=== PATIENT | female | born 1945 | race Caucasian/White ===

== ENCOUNTER 2017-06-03 10:30 | Day surgery (SDC) | payer MEDICARE ==
[2017-06-03 14:07] VITALS: BP 125/53
== END 2017-06-03 14:02 | disposition home or self-care (01) ==
LOC: SDC 10:30
PROVIDERS: Ophthalmology
PROC: 08RJ3JZ Replacement of Right Lens with Synthetic Substitute, Percutaneous Approach (ICD-10-PCS; principal; 2017-06-03 14:00)
DX: H26.9 Unspecified cataract (principal); E11.9 Type 2 diabetes mellitus without complications
CPT/HCPCS: V2632

== ENCOUNTER 2017-08-31 01:59 | Emergency (ER) | payer MEDICARE ==
[~2017-08-31] VITALS: Ht 160 cm; Wt 96.2 kg
--- OUTSIDE RECORDS SUMMARY | 2017-08-31 02:42 | External Medical Summary Rpt | CCD ---
Demographics Preferred Language Greek Marital Status Unknown Christianity Affiliation Unknown Race Unknown Ethnic Group Unknown Author Author , NAEEM HARTLEY Address Unknown Phone Immunization Unable to retrieve immunization data due to connection failure with Immunization Registry. Please try again later.
--- OUTSIDE RECORDS SUMMARY | 2017-08-31 02:42 | External Medical Summary Rpt | CCD ---
Author Author PHAM Address Unknown Phone [email or web address] Purpose Continuity of Care Document - through 2016
--- OUTSIDE RECORDS SUMMARY | 2017-08-31 02:42 | External Medical Summary Rpt ---
Author Author NAEEM Myrna, [employer] Organization [employer] Address Unknown Phone Unavailable Results Glucose [Mass/volume] in Capillary blood by Glucometer Observa Value Referen Units Interpr Notes Date tion ce etation Range Glucose 70 - 110 mg/dl No No Jun 8 [Mass/vol informati informati 2017 9:56 ume] in on in on in AM Capillary source source blood by data data Glucomete r Glucose [Mass/volume] in Capillary blood by Glucometer Observa Value Referen Units Interpr Notes Date ti ce etation Range Glucose 70 - 110 mg/dl High No Jun 03 [Mass/vol informati 2016 ume] in on in 11:54 AM Capillary source blood by data Glucomete r Cobalamin (Vitamin B12) [Mass/volume] in Serum Observa Value Referen Units Interpr Notes Date ti ce etation Range Cobalamin 211 - 946 pg/mL No Performed Apr 30 (Vitamin informati at: CB 2016 1:41 B12) on in - [facility] PM [Mass/vol source ume] in data [address] [address] Serum 0 [place], [place] [id number] Ground Operations Supervisor: Ruddy Kyle PhD, Phone: [phone] Iron and TIBC Observa Value Referen Units Interpr Notes Date ti ce etation Range Iron 250 - 450 ug/dL No No Apr 30 binding informati informati 2016 1:41 capacity on in on in PM [Mass/vol source source ume] in data data Serum or Plasma Iron 118 - 369 ug/dL High No Apr 30 binding informati 2017 1:41 capacity. on in PM unsaturat source ed data [Mass/vol ume] in Serum or Plasma Iron 27 - 139 ug/dL Low No Apr 30 [Mass/vol informati 2017 1:41 ume] in on in PM Serum or source Plasma data Iron 15 - 55 % Low Performed Apr 30 saturatio at: CB 2016 1:41 n [Mass] - [facility] PM in Serum or Plasma [id number] [place], [place] [id number] Ground Operations Supervisor: Ruddy Kyle PhD, Phone: [phone] Folate [Mass/volume] in Serum or Plasma Observa Value Referen Units Interpr Notes Date tion ce etation Range Folate >3.0 ng/mL No A serum Apr 30 [Mass/vol informati folate 2017 1:41 ume] in on in concentra PM Serum or source tion of Plasma data less than 3.1 ng/mL isconside red to represent clinical deficienc y.Perform ed at: CB - [facility] [id number] [place], [place] [id number] Ground Operations Supervisor: Ruddy Kyle PhD, Phone: [phone] Comprehensive metabolic 2000 panel in Serum or Plasma Observa Value Referen Units Interpr Notes Date tion ce etation Range Albumin/G 1.1 - 1.8 No Low No Apr 30 lobulin informati informati 2017 1:41 [Mass on in on in PM ratio] in source source Serum or data data Plasma Albumin 3.4 - 5.0 gm/dL Low No Apr 30 [Mass/vol informati 2017 1:41 ume] in on in PM Serum or source Plasma data Alkaline 46 - 116 U/L Normal No Apr 30 phosphata informati 2017 1:41 se on in PM [Enzymati source c data activity/ volume] in Serum or Plasma Bilirubin 0.2 - 1.0 mg/dL Normal No Apr 30 .total informati 2016 1:41 [Mass/vol on in PM ume] in source Serum or data Plasma Urea 7 - 18 mg/dL High No Apr 30 nitrogen informati 2017 1:41 [Mass/vol on in PM ume] in source Serum or data Plasma Calcium 8.5 - mg/dL Normal No Apr 30 [Mass/vol 10.1 informati 2017 1:41 ume] in on in PM Serum or source Plasma data Chloride 98 - 107 mmoL/L Normal No Apr 30 [Moles/vo informati 2017 1:41 lume] in on in PM Serum or source Plasma data Carbon 21.0 - mmoL/L Normal No Apr 30 dioxide, 32.0 informati 2017 1:41 total on in PM [Moles/vo source lume] in data Serum or Plasma Creatinin 0.55 - mg/dL High No Apr 30 e 1.02 inform2016 1:41 [Mass/vol on in PM ume] in source Serum or data Plasma Estimated 59- ML/MIN Low REFERENCE Apr 30 RANGE: 2016 1:41 glomerula >60 PM r ML/MIN/1. filtratio 73 SQUARE n rate METERSIf (GF this patient is -A merican, then multiply theresult by 1.210. Globulin 1.3 - 3.2 gm/dL High No Apr 30 [Mass/vol informati 2016 1:41 ume] in on in PM Serum source data Glucose 74 - 106 mg/dL Normal No Apr 30 [Mass/vol informati 2016 1:41 ume] in on in PM Serum or source Plasma data Potassium 3.5 - 5.1 mmoL/L Normal No Apr 302016 1:41 [Moles/vo on in PM lume] in source Serum or data Plasma Sodium 136 - 145 mmoL/L Normal No Apr 30 [Moles/vo informati 2016 1:41 lume] in on in PM Serum or source Plasma data Aspartate 15 - 37 U/L Low No Apr 30 informati 2016 1:41 aminotran on in PM sferase source [Enzymati data c activity/ volume] in Serum or Plasma Alanine 12 - 78 U/L Normal No Apr 30 aminotran 2016 1:41 sferase on in PM [Enzymati source c data activity/ volume] in Serum or Plasma Protein 6.4 - 8.2 gm/dL Normal No Apr 30 [Mass/vol informati 2016 1:41 ume] in on in PM Serum or source Plasma data CRP Observa Value Referen Units Interpr Notes Date tion ce etation Range CRP 0.0 - 0.9 MG/DL High No Apr 30 informati 2016 1:41 on in PM source data Ferritin [Mass/volume] in Serum or Plasma Observa Value Referen Units Interpr Notes Date tion ce etation Range Ferritin 8 - 388 ng/mL Normal No Apr 30 [Mass/vol informati 2016 1:41 ume] in on in PM Serum or source Plasma data CBC W Auto Differential panel in Blood Observa Value Referen Units Interpr Notes Date tion ce etation Range Basophils 0 - 0.2 K/MM3 Normal No Apr 30 informati 2016 1:41 [#/volume on in PM ] in source Blood by data Automated count Basophils 0.1 - 2.0 % Normal No Fran 21 /100 informati 2017 1:41 leukocyte on in PM s in source Blood by data Automated count Eosinophi 0.0 - 0.4 K/mm3 High No Apr 21 ls informati 2016 1:41 [#/volume on in PM ] in source Blood by data Automated count Eosinophi 0.1 - % Normal No Apr 30 ls/100 12.0 informati 2016 1:41 leukocyte on in PM s in source Blood by data Automated count Granulocy 1.8 - 7.8 K/mm3 High No Apr 21 marcello informati 2016 1:41 [#/volume on in PM ] in source Blood by data Automated count Granulocy 37.0 - % Normal No Apr 30 marcello/100 80.0 informati 2016 1:41 leukocyte on in PM s in source Blood by data Automated count Hematocri 37.0 - % Low No Apr 30 t [Volume 47.0 informati 2016 1:41 on in PM Fraction] source of Blood data Hemoglobi 12.2 - g/dL Low No Apr 30 n 16.2 informati 2016 1:41 [Mass/vol on in PM ume] in source Blood data Lymphocyt 0.7 - 4.5 K/mm3 Normal No Apr 30 es informati 2017 1:41 [#/volume on in PM ] in source Unspecifi data ed specimen by Automated count Lymphocyt 10 - 50.0 % Normal No Apr 30 es informati 2017 1:41 [#/volume on in PM ] in source Unspecifi data ed specimen by Automated count Erythrocy 27 - 31.2 pg Low No Apr 30 te mean informati 2017 1:41 corpuscul on in PM ar source hemoglobi data n [Entitic mass] Erythrocy 31.8 - g/dl Low No Apr 30 te mean 35.4 informati 2017 1:41 corpuscul on in PM ar source hemoglobi data n concentra tion [Mass/vol ume] by Automated count Erythrocy 82.2 - fl Low No Apr 30 te mean 97.8 informati 2016 1:41 corpuscul on in PM ar volume source [Entitic data volume] by Automated count Monocytes 0.1 - 1.0 K/mm3 Normal No Apr 21 informati 2016 1:41 [#/volume on in PM ] in source Blood by data Automated count Monocytes 1.7 - 9.3 % Normal No Apr 30 /100 informati 2017 1:41 leukocyte on in PM s in source Blood by data Automated count Platelet 7.4 - fl Low No Apr 30 mean 10.4 informati 2017 1:41 volume on in PM [Entitic source volume] data in Blood by Automated count Platelets 142 - 424 K/mm3 Normal No Apr 30 informati 2017 1:41 [#/volume on in PM ] in source Blood data Erythrocy 4.2 - 5.4 M/mm3 Normal No Apr 30 marcello informati 2016 1:41 [#/volume on in PM ] in source Amniotic data fluid Erythrocy 11.5 - % Normal Apr 30 te 17.5 informati 2017 1:41 distribut on in PM ion width source [Entitic data volume] by Automated count Leukocyte 4.8 - K/MM3 High No Apr 30 s 10.8 informati 2016 1:41 [#/volume on in PM ] in source Blood data
--- OUTSIDE RECORDS SUMMARY | 2017-08-31 02:42 | External Medical Summary Rpt ---
[...] [facility] PM [Mass/vol source ume] in data [address] [address] Serum [address] [place], [place] [id number] Paraffiner: Ruddy Kyle PhD, Phone: [phone] Iron and TIBC Observa Value Referen [...] - [facility] PM in Serum or Plasma [id number] [place], [place] [id number] Paraffiner: Ruddy Kyle PhD, Phone: [phone] Folate [Mass/volume] in Serum or Plasma Observa Value Referen Units Interpr Notes Date tion ce etation Range Folate >3.0 ng/mL No A serum Apr 30 [Mass/vol informati folate 2017 1:41 ume] in on in concentra PM Serum or source tion of Plasma data less than 3.1 ng/mL isconside red to represent clinical deficienc y.Perform ed at: CB - [facility] [id number] [place], [place] [id number] Paraffiner: Ruddy Kyle PhD, Phone: [phone] Comprehensive metabolic 2000 panel in Serum [...]
--- OUTSIDE RECORDS SUMMARY | 2017-08-31 02:42 | External Medical Summary Rpt | CCD ---
Author Author , NAEEM HARTLEY Address Unknown Phone [email or web address] Purpose Continuity of Care Document - 04-09-2017 through 2016 Results Labs Lab Lab Date Result Refere Interp Status Commen Order Detail nces retati t Range on CBC (hemogram) Bld Auto (04-10-2017 04:23) Platele 343 150-450 complet t # Bld 017 10*3/mm ed Auto 04:23 3 PMV Bld 9.1 fL 6.0-12. complet Auto 017 0 ed 04:23 RDW RBC 49.4 fl 37.0-54 complet Auto 017 .0 ed 04:23 RDW RBC 17.5 % 11.3-14 complet 017 .5 ed Auto-Rt 04:23 o MCHC 2 30.0 32.0-36 complet RBC 017 g/dL .0 ed Auto-mC 04:23 nc MCH RBC 22.9 pg 27.0-31 complet Qn 017 .0 ed Auto 04:23 MCV RBC 76.3 fL 80.0-99 complet Auto 017 .0 ed 04:23 Hct VFr 31.3 % 34.5-44 complet Bld 017 .0 ed Auto 04:23 Hgb 04-10-2 9.4 11.5-15 complet Bld-mCn 017 g/dL .5 ed c 04:23 RBC # 06-01-2 4.10 3.89-5. complet Bld 017 10*6/mm 14 ed Auto 04:23 3 WBC 04-10-2 13.12 3.50-10 complet nRBC 017 10*3/mm .80 ed cor # 04:23 3 Bld Bas Metab 2000 Pnl SerPl (04-10-2017 04:23) Comment: National Kid[employer] Guidelines Comment: Comment: Stage Description GFR Comment: 1 Normal or High 90+ Comment: 2 Mild decrease 60-89 Comment: 3 Moderate decrease 30-59 Comment: 4 Severe decrease 15-29 Comment: 5 Kidney failure <15 Anion 3.0 3.0-11. complet Gap3 017 mmol/L 0 ed SerPl-s 04:23 Cnc BUN/Cre 16.7 7.0-25. complet at 017 0 ed SerPl 04:23 GFR/BSA 44 >60 complet .pred 017 mL/min/ ed SerPl 04:23 1.73 MDRD-Ar VRat Calcium 9.1 8.7-10. complet 017 mg/dL 4 ed XXX-sCn 04:23 c CO2 28.0 20.0-31 complet SerPl-s 017 mmol/L .0 ed Cnc 04:23 Chlorid 103 99-109 complet e 017 mmol/L ed SerPl-s 04:23 Cnc Potassi 4.1 3.5-5.5 complet um 017 mmol/L ed Bld-sCn 04:23 c Sodium 134 132-146 complet Bld-sCn 017 mmol/L ed c 04:23 Creat 1.20 0.60-1. complet Bld-mCn 017 mg/dL 30 ed c 04:23 BUN 20 9-23 complet Bld-mCn 017 mg/dL ed c 04:23 Glucose 106 70-100 complet 017 mg/dL ed Bld-mCn 04:23 c Bas Metab 1999 Pnl SerPl (04-09-2017 12:51) Comment: Meter: [id number] Composite Science Teacher: [id number] Vangie Shane Glucose 154 70-130 complet BldC 017 mg/dL ed Glucomt 12:51 r-mCnc Bas Metab 1999 Pnl SerPl (04-09-2017 11:26) Comment: Meter: [id number] Composite Science Teacher: [id number] Nirmala Gordon Glucose 152 70-130 complet BldC 017 mg/dL ed Glucomt 11:26 r-mCnc Bas Metab 1999 Pnl SerPl (04-09-2017 10:15) Comment: Meter: [id number] Composite Science Teacher: [id number] Nirmala Gordon Glucose 56 70-130 complet BldC 017 mg/dL ed Glucomt 10:15 r-mCnc ACT Bld (04-09-2017 09:26) ACT Bld 234 82-152 complet 017 Seconds ed 09:26 Comment: Serial Number: [id number] Composite Science Teacher: [id number] Bas Metab 2000 Pnl SerPl (04-09-2017 07:08) Comment: Meter: [id number] Composite Science Teacher: [id number] Yolanda Ryder Glucose 80 70-130 complet BldC 017 mg/dL ed Glucomt 07:08 r-[facility] Lipid pnl with direct LDL SerPl (04-09-2017 07:04) Comment: Cholesterol Reference Ranges: Comment: Desirable < 200 mg/dL Comment: Borderline 200-239 mg/dL Comment: High Risk > 239 mg/dL Comment: Comment: Triglyceride Reference Ranges: Comment: Normal < 150 mg/dL Comment: Borderline 150-199 mg/dL Comment: High 200-499 mg/dL Comment: Very High > 499 mg/dL Comment: Comment: HDL Reference Ranges: Comment: Low < 40 mg/dL Comment: High > 59 mg/dL Comment: Comment: LDL Reference Ranges: Comment: Optimal < 100 mg/dL Comment: Near Optimal 100-129 mg/dL Comment: Borderline 130-159 mg/dL Comment: High 160-189 mg/dL Comment: Very High > 189 mg/dL Articho 80 0-130 complet ke IgE 017 mg/dL ed Qn 07:04 HDLc 57 40-60 complet SerPl-m 017 mg/dL ed Cnc 07:04 Trigl 114 0-150 complet SerPl-m 017 mg/dL ed Cnc 07:04 Cholest 156 0-200 complet 017 mg/dL ed SerPl-m 07:04 Cnc Hgb A1c Bld (04-09-2017 07:04) Comment: The [place] [employer] recommends maintenance of Hemoglobin A1C at 7.0% or lower. Goals for Hemoglobin A1C reduction may need to be modified if hypoglycemia is a problem. Hgb A1c 8.00 % 4.80-5. complet MFr 017 60 ed Bld 07:04 Comp Metab 1998 Pnl SerPl (04-09-2017 07:04) Comment: National Kidney Foundation Guidelines Comment: Comment: Stage Description GFR Comment: 1 Normal or High 90+ Comment: 2 Mild decrease 60-89 Comment: 3 Moderate decrease 30-59 Comment: 4 Severe decrease 15-29 Comment: 5 Kidney failure <15 Anion 04-09- 10.0 3.0-11. complet Gap3 017 mmol/L 0 ed SerPl-s 07:04 Cnc BUN/Cre 22.0 7.0-25. complet at 017 0 ed SerPl 07:04 Albumin 1.4 1.5-2.5 complet /Glob 017 g/dL ed SerPl 07:04 Globuli 3.1 complet n Ur 017 gm/dL ed Elph-mC 07:04 nc GFR/BSA 55 >60 complet .pred 017 mL/min/ ed SerPl 07:04 1.73 MDRD-Ar VRat Bilirub 0.4 0.3-1.2 complet 017 mg/dL ed SerPl-m 07:04 Cnc ALP 98 U/L 25-100 complet SerPl-c 017 ed Cnc 07:04 AST 14 U/L 0-33 complet SerPl-c 017 ed Cnc 07:04 ALT 04-09- 10 U/L 7-40 complet SerPl w 017 ed 07:04 P-5'-P- cCnc Albumin 4.40 3.20-4. complet 017 g/dL 80 ed SerPl-m 07:04 Cnc Prot 7.5 5.7-8.2 complet SerPl-m 017 g/dL ed Cnc 07:04 Calcium 10.0 8.7-10. complet 017 mg/dL 4 ed XXX-sCn 07:04 c CO2 28.0 20.0-31 complet SerPl-s 017 mmol/L .0 ed Cnc 07:04 Chlorid 04-09- 105 99-109 complet e 017 mmol/L ed SerPl-s 07:04 Cnc Potassi 4.7 3.5-5.5 complet um 017 mmol/L ed Bld-sCn 07:04 c Sodium 143 132-146 complet Bld-sCn 017 mmol/L ed c 07:04 Creat 04-09-2 1.00 0.60-1. complet Bld-mCn 017 mg/dL 30 ed c 07:04 BUN 04-09-2 22 9-23 complet Bld-mCn 017 mg/dL ed c 07:04 Glucose 67 70-100 complet 017 mg/dL ed Bld-mCn 07:04 c CBC (hemogram) Bld Auto (04-09-2017 07:04) Platele 04-09- 400 150-450 complet t # Bld 017 10*3/mm ed Auto 07:04 3 PMV Bld 9.2 fL 6.0-12. complet Auto 017 0 ed 07:04 RDW RBC 04-09- 48.1 fl 37.0-54 complet Auto 017 .0 ed 07:04 RDW RBC 04-09-2 17.4 % 11.3-14 complet 017 .5 ed Auto-Rt 07:04 o MCHC 04-09-2 30.5 32.0-36 complet RBC 017 g/dL .0 ed Auto-mC 07:04 nc MCH RBC 04-09-2 22.9 pg 27.0-31 complet Qn 017 .0 ed Auto 07:04 MCV RBC 04-09-2 75.3 fL 80.0-99 complet Auto 017 .0 ed 07:04 Hct VFr 37.4 % 34.5-44 complet Bld 017 .0 ed Auto 07:04 Hgb 04-09-2 11.4 11.5-15 complet Bld-mCn 017 g/dL .5 ed c 07:04 RBC # 31-2 4.97 3.89-5. complet Bld 017 10*6/mm 14 ed Auto 07:04 3 WBC 04-09-2 14.34 3.50-10 complet nRBC 017 10*3/mm .80 ed cor # 07:04 3 Bld
--- OUTSIDE RECORDS SUMMARY | 2017-08-31 02:42 | External Medical Summary Rpt | CCD ---
Demographics Preferred Language Serbian Marital Status Unknown Sikh Affiliation Unknown Race Unknown Ethnic Group Unknown Author Author , NAEEM HARTLEY Address Unknown Phone Immunization Unable to retrieve immunization data due to connection failure with Immunization Registry. Please try again later.
--- OUTSIDE RECORDS SUMMARY | 2017-08-31 02:42 | External Medical Summary Rpt | CCD ---
Author Author PHAM Address Unknown Phone [email or web address] Purpose Continuity of Care Document - through 2016
--- OUTSIDE RECORDS SUMMARY | 2017-08-31 02:42 | External Medical Summary Rpt | CCD ---
Author Author , NAEEM HARTLEY Address Unknown Phone [email or web address] Purpose Continuity of Care Document - 04-09-2017 [...] 1999 Pnl SerPl (04-09-2017 12:51) Comment: Meter: [id number] Liaison Engineer: [id number] Vangie Shane Glucose 154 70-130 complet BldC 017 mg/dL ed Glucomt 12:51 r-mCnc Bas Metab 1999 Pnl SerPl (04-09-2017 11:26) Comment: Meter: [id number] Liaison Engineer: [id number] Nirmala Gordon Glucose 152 70-130 complet BldC 017 mg/dL ed Glucomt 11:26 r-mCnc Bas Metab 1999 Pnl SerPl (04-09-2017 10:15) Comment: Meter: [id number] Liaison Engineer: [id number] Nirmala Gordon Glucose 56 70-130 complet BldC 017 mg/dL ed Glucomt 10:15 r-mCnc ACT Bld (04-09-2017 09:26) ACT Bld 234 82-152 complet 017 Seconds ed 09:26 Comment: Serial Number: [id number] Liaison Engineer: [id number] Bas Metab 2000 Pnl SerPl (04-09-2017 07:08) Comment: Meter: [id number] Liaison Engineer: [id number] Yolanda Ryder Glucose 80 70-130 complet BldC 017 mg/dL ed Glucomt 07:08 r-[facility] Lipid pnl with direct LDL SerPl (04-09-2017 [...] Hgb A1c Bld (04-09-2017 07:04) Comment: The [place] [employer] recommends maintenance of Hemoglobin A1C [...]
[2017-08-31 03:04] LABS: URINE BILIRUBIN - DIPSTICK NEGATIVE (NEG); URINE BLOOD NEGATIVE (NEG)
[2017-08-31 03:06] LABS: HEMOGLOBIN 10.6 g/dL (12.2-16.2); LYMPH # 2.7 K/mm3 (0.7-4.5); LYMPH % 25.5 % (10-50.0)
--- NOTE | 2017-08-31 03:42 | Emergency Room Report ---
History of Present Illness Time Seen by MD Rodriguez Presenting Problem in Triage Pt arrived:Ambulance Stretcher Presenting Problem:PT TO ED BY EMS D/T BLOOD SUGAR DROPPED DOWN TO 36, SPOUSE STATES HE WAS UNABLE TO GET PT TO RESPOND Onset of symptoms date/time:08/31/17 or onset unknown for: Treatment Prior to Arrival: D50, [employer] Provided by:EMT Sepsis Risk Assessment: Temp: 92.9 B/P: 129/62 MAP: 78 Pulse: 64 Resp: 20 Recent fever? N Clinical Suspician of Infection? Y Mental Status: 2 - Mildly Altered Sepsis Risk:Low Sepsis Risk Have you (or family members/close friends) recently traveled outside the [place]? N If Yes, where/when: Have you had exposure to infectious disease within the past month? N TB? Other? Specify: Source patient, RN notes reviewed, family, EMS, old records Exam Limitations no limitations Comment pt with iddm with low glu and brought to ed - no fever or rash and has had episodes in past Cardiac Chest Pain Chest pain indicative of cardiac No Timing/Duration this evening Severity moderate ALLERGIES Coded Allergies: Sulfa (Sulfonamide Antibiotics) (Intermediate, I-RASH 06/17/17) Home Medications Reported Medications Balsalazide Disodium 750 MG PO BID INSULIN NPH HUM/REG INSULIN HM (Novolin 70-30 100 Unit/Ml Vial) 40 UNITS SC BID CLOPIDOGREL BISULFATE (PLAVIX) 75 MG PO DAILY Glimepiride (Amaryl 4MG) 4 MG PO BID Ferrous Sulfate 325 MG PO BID Omeprazole (Omeprazole 40MG) 40 MG PO DAILY Clonidine Hcl (Clonidine) 0.2 MG PO TID Simvastatin (Simvastatin 40MG Tab) 40 MG PO QHS History Medical History General CAD? Yes Angina: Yes NV: Yes Hypertension? Yes Hyperlipidemia? Yes CHF? No DVT? No PE? No COPD? Yes Anemia? Yes GERD? Yes Gastric ulcers? Yes GI Bleed? Yes Hernia? No Thyroid Problems? No Hypothyroidism? No CVA? No Seizures? No Diabetes? Yes Insulin Dependent: Yes Insulin Pump: No Home FSBS? Yes Renal Insuffiency? No End Stage Renal Disease? No UTI? No Stones? No BPH? No GB Disease: No Nephritic Syndrome? No Asplenia? No Hepatitis? No Sickle Cell Disease? No Arthritis? No Migraines? No Cataracts? Yes Glaucoma? No MRSA? No HIV? No TB? No Anxiety? Yes Depression? Yes Cancer? No Immunization Hx DT/Tetanus Unknown Surgical Hx Previous Surgery?Y Hysterectomy-Total ARTHROSCOPIC KNEE CARPAL TUNNEL Social History Smoking Hx Smoker: Light Tobacco Smoker Tobacco: Yes Type Cigarettes Alcohol Alcohol: No Drugs none Review of Systems All Other Systems Reviewed and Negative Constitutional denies fever Eyes denies drainage ENT denies: ear pain, epistaxis, throat pain. Respiratory denies cough, denies shortness of breath, denies wheezing Cardiovascular denies chest pain, denies syncope Gastrointestinal denies constipation, denies vomiting Genitourinary denies: dysuria, frequency, hesitancy, hematuria. Musculoskeletal denies back pain, denies joint pain, denies neck pain Skin denies rash Psychiatric/Neurological denies headache, denies seizure Physical Exam Vital Signs Vital Signs Date Time Temp Pulse Resp B/P Pulse O2 O2 Flow FiO2 Ox Delivery Rate 08/31 0522 56 20 147/78 91 2 08/31 0429 54 20 144/68 95 2 08/31 0400 85 20 133/73 91 08/31 0309 64 20 129/62 94 2 08/31 0236 59 20 119/65 94 2 08/31 0200 92.9 51 18 124/56 96 2 - WBC >12,000 or <4,000 or 10% bands? 2 or more SIRS Criteria Met? B/P:133/73 MAP:78 Creatinine >2.0? UA output<0.5ml/kg/hr for 2 hrs? Platelet count >100,000? Lactate >2.0mmol/1? INR >1.2 or PTT > than 60 sec? Evidence of Organ Dysfunction? Provider documented clinical suspician of infection? Y Sepsis Criteria Count: 1 Sepsis Risk: Low Sepsis Risk General Appearance no apparent distress Eye Exam - bilateral eye PERRL, bilateral eye EOMI Ear, Nose, Throat normal ENT inspection Neck non-tender Respiratory Status No: respiratory distress. Lung Sounds bilateral: lungs clear. Cardiovascular regular rate/rhythm Peripheral Pulses Pulses normal Yes Gastrointestinal soft Back no CVA tenderness Extremities swelling Strength 4 Upper Ext (L), 4 Upper Ext (R), 4 Lower Ext (L), 4 Lower Ext (R) Neurologic alert, local sales associate II-XII nml as tested, no motor/sensory deficits Glascow Coma Scale Glascow Coma Scale Response Value EYE response: 4 Spontaneously 4 MOTOR response: 6 OBEYS 6 VERBAL response: 5 Oriented & Converses 5 Total 15 Reflexes Reflexes normal No Mental status normal mood/affect Skin intact Comments walks but a bit umsteady Medical Decision Making LABS/Meds/Orders Pt receiving controlled substance in ED? No Results/Orders Laboratory Tests 08/31/178: POC Glucose 102 08/31/17 0255: Urine Color YELLOW, Urine Appearance CLEAR, Urine pH 5.5, Ur Specific [place] 1.010, Urine Protein TRACE H, Urine Ketones NEGATIVE, Urine Blood NEGATIVE, Urine Nitrate NEGATIVE, Urine Bilirubin NEGATIVE, Urine Urobilinogen 0.2, Ur Leukocyte Esterase NEGATIVE, Amorphous Sediment 1+, Urine Glucose NEGATIVE 08/31/17244: Lactic Acid 0.9 08/31/17244: Sodium 139, Potassium 4.5, Chloride 103, Carbon Dioxide 26, BUN 32 H, Creatinine 1.4 H, Estimated Creat Clear 57, Estimated GFR (MDRD) 37 L, Glucose 60 L, Calcium 8.8, Total Bilirubin 0.4, AST 9 L, ALT 9 L, Alkaline Phosphatase 86, Total Protein 7.4, Albumin 3.4, Globulin 4.0 H, Albumin/ Globulin Ratio 0.9 L, WBC 10.4, RBC 4.40, Hgb 10.6 L, Hct 34.6 L, MCV 78.7 L , RDW 18.5 H, Plt Count 301, MPV 6.9 L, Gran % 64.4, Gran # 6.7, Lymphocytes % 25.5, Monocytes % 5.6, Eosinophils % 3.7, Basophils % 0.7, Lymphocytes # 2.7, Monocytes # 0.6, Eosinophils # 0.4, Basophils # 0.1, PUBS MCHC 30.8 L, MCH 24.2 L 08/31/17 0203: POC Glucose 81 Current Medication Orders Sig/Yamil Start time Last Medication Dose Route Stop Time Status Admin Sodium Chloride 10 ML PRN PRN 08/31 245 AC IV 09/01 240 Sodium Chloride 1,000 ML .Q1H1M 08/31 245 DC 08/31 IV 08/31 345 0406 Sodium Chloride 10 ML PRN PRN 08/31 245 AC IV 09/01 241 Orders Procedure Date/time Status FINGERSTICK BLOOD SUGAR 10/22 0448 Complete CULTURE, BLOOD 08/31 313 Active FSBS REQUEST BY CARE AREA 08/31 254 Active ELECTROCARDIOGRAM REQUEST 08/31 241 Active CHEST-PORTABLE 08/31 241 Active IV SALINE LOCK 08/31 241 Active URINALYSIS/COMPLETE 08/31 241 Complete LACTIC ACID 08/31 241 Complete CBC WITH AUTO DIFF 08/31 241 Complete CHEM 12 PROFILE 08/31 241 Complete FINGERSTICK BLOOD SUGAR 08/31 203 Complete 12 LEAD EKG-MANSI (INITIAL) 08/31 UNK Active CM/EKG CM/inventory transcriber Rhythm Sinus Bradycardia EKG no EKG for comparison, non-spec. ST/Twave chgs Departure Departure Time of Disposition 344 Disposition DC Home or Self Care(routine) Clinical Impression Primary Impression: Hypoglycemia Secondary Impressions: Anemia Qualifiers: Anemia type: unspecified type Qualified Code: D64.9 - Anemia, unspecified IDDM (insulin dependent diabetes mellitus) Renal insufficiency Condition STABLE Referrals Amandeep MAE,A.C. (Family) Patient Instructions DI for Hypoglycemia Additional Instructions decrease insulin and see pcp for follow up Discharge Counseling Counseled pt/family regarding diagnosis, test results, medications/RX, follow up needs ED Critical Care Critical Care No at [id number]
[2017-08-31] MEDS ORDERED: BALSALAZIDE DI750 MG PO (04:13)
[2017-08-31] MEDS ORDERED: NOVOLIN 70/30 710 ML SC (04:17)
[2017-08-31] MEDS ORDERED: PLAVIX 75MG TAB75 MG PO (04:18)
[2017-08-31] MEDS ORDERED: AMARYL 4MG. TAB4 MG PO (04:19)
[2017-08-31] MEDS ORDERED: OMEPRAZOLE40 MG PO (04:21)
[2017-08-31] MEDS ORDERED: IRON325 M1 PO (04:21)
[2017-08-31] MEDS ORDERED: CLONIDINE HYDR0.2 MG PO (04:22)
[2017-08-31] MEDS ORDERED: SIMVASTATIN40 MG PO (04:23)
[2017-08-31] MEDS ORDERED: AMLO2.5T PO (05:33)
[2017-08-31] MEDS ORDERED: METFORMIN 500M500 M1 PO (05:34)
[2017-08-31] MEDS ORDERED: Isosorbide Mono60 MG PO (05:35)
[2017-08-31] MEDS ORDERED: HYDROCHLOROTHIA25 M1 PO (05:37)
[2017-08-31] MEDS ORDERED: LISINOPRIL40 MG PO (05:38)
[2017-08-31] MEDS ORDERED: CARVEDILOL 25MG25 MG PO (05:38)
[2017-08-31 06:59] VITALS: BP 147/78
--- NOTE | 2017-08-31 07:59 | RADIOLOGY REPORT PS360 ---
CHEST-PORTABLE COMPARISON: None HISTORY: Hypoglycemia TECHNIQUE: Portable upright chest FINDINGS: The lung mari are well expanded and appear clear of infiltrate. There is mild generalized cardio megaly without failure. There is no pleural fluid. There are mild multilevel degenerative changes of the thoracic spine. IMPRESSION: Mild cardio megaly, no acute chest pathology noted
== END 2017-08-31 06:00 | disposition home or self-care (01) ==
LOC: ER 01:59
PROVIDERS: Emergency Medicine
DX: E10.649 Type 1 diabetes mellitus with hypoglycemia without coma (principal); E10.65 Type 1 diabetes mellitus with hyperglycemia; Z79.4 Long term (current) use of insulin; I10 Essential (primary) hypertension; E78.5 Hyperlipidemia, unspecified; K21.9 Gastro-esophageal reflux disease without esophagitis; F17.210 Nicotine dependence, cigarettes, uncomplicated; D64.9 Anemia, unspecified; N28.9 Disorder of kidney and ureter, unspecified